=== PATIENT | female | born 1990 | race Caucasian/White ===

== ENCOUNTER 2017-07-22 10:39 | Inpatient (IN) | payer OTHER ==
[~2017-07-22] VITALS: Ht 165.1 cm; Wt 114.0 kg
[2017-07-25] MEDS ORDERED: OXYTOCIN 30U/ 0.9% NaCL 500ML 500 ML IV ONE (20:58)
[2017-07-25] MEDS ORDERED: OXYTOCIN 30U/ 0.9% NaCL 500ML 500 ML IV PRN (20:58)
[2017-07-25] MEDS: D5%-LACTATED RINGERS 1,000 ML IV SCH (20:58)
[2017-07-25] MEDS ORDERED: FENTANYL PF 100 MCG/2ML IV PRN (21:00)
[2017-07-25] MEDS ORDERED: CALCIUM CARBONATE 500 MG TAB.CHEW PO PRN (21:00)
[2017-07-25] MEDS ORDERED: ONDANSETRON 2MG/ML, 2ML IVPush PRN (21:00)
[2017-07-25] MEDS ORDERED: MISOPROSTOL 25 MCG TABLET VG PRN (21:00)
[2017-07-25] MEDS ORDERED: FENTANYL PF 100 MCG/2ML IVPush PRN (21:00)
[2017-07-25] MEDS ORDERED: NEWBORN KIT ONE (21:04)
[2017-07-25 21:10] VITALS: BP 124/72
[2017-07-25] MEDS ORDERED: MISOPROSTOL 25 MCG TABLET ONE (21:22)
[2017-07-25 21:24] LABS: BASOPHILS # (AUTO) 0.05 x10^3/uL (0-0.1); BASOPHILS % (AUTO) 0 % (0-1); EOSINOPHILS # (AUTO) 0.03 x10^3/uL (0-0.4); EOSINOPHILS % (AUTO) 0 % (1-7); LYMPHOCYTES # (AUTO) 2.21 x10^3/uL (1-3.4); LYMPHOCYTES % (AUTO) 17 % (22-44); MD NO; MEAN CORPUSCULAR HEMOGLOBIN 33.2 pg (27.0-34.8); MEAN CORPUSCULAR HGB CONC 34.3 g/dL (32.4-35.8); MEAN CORPUSCULAR VOLUME 96.8 fL (80-100); MEAN PLATELET VOLUME 9.9 fL (7.4-10.4); MONOCYTES # (AUTO) 0.88 x10^3/uL (0.2-0.8); MONOCYTES % (AUTO) 7 % (2-9); NEUTROPHILS # (AUTO) 9.73 x10^3/uL (1.8-6.8); NEUTROPHILS % (AUTO) 75 % (42-75); PLATELET COUNT 174 x10^3/uL (130-400); RED BLOOD COUNT 3.82 x10^6/uL (3.82-5.3); RED CELL DISTRIBUTION WIDTH 13.2 % (9.6-15.2)
[2017-07-25 21:37] LABS: AMPHETAMINE SCREEN, URINE Negative (Negative); BARBITURATE SCREEN, URINE Negative (Negative); BENZODIAZEPINE SCREEN, URINE Negative (Negative); CANNABINOID SCREEN, URINE Positive (Negative); COCAINE SCREEN, URINE Negative (Negative); METHADONE SCREEN, URINE Negative (Negative); OPIATE SCREEN, URINE Negative (Negative)
[2017-07-26] MEDS ORDERED: PENICILLIN GK 5,000,000 UNITS in SODIUM CHLORIDE 0.9% 100 ML IVPB ONE (01:00)
[2017-07-26] MEDS: LACTATED RINGERS 1,000 ML IV SCH ×8 (01:46→21:23)
[2017-07-26] MEDS ORDERED: SODIUM CITRATE/CITRIC ACID 30 ML UDC ONE ×2 (02:14→18:42)
[2017-07-26] MEDS ORDERED: METOCLOPRAMIDE 5 MG/ML, 2ML ONE ×3 (02:14→19:30)
[2017-07-26] MEDS: PENICILLIN GK 2,500,000 UNITS in DEXTROSE 5% 100 ML IVPB SCH ×5 (06:39→21:00)
[2017-07-26] MEDS ORDERED: TERBUTALINE 1 MG/ML, 1ML ONE (06:50)
[2017-07-26] MEDS: TERBUTALINE 1 MG/ML, 1ML IVPush PRN ×2 (06:53→13:08)
[2017-07-26] MEDS ORDERED: FENTANYL/BUPIV./NS/PF 250 ML EPIDCONT ONE ×2 (07:49→07:55)
[2017-07-26] MEDS ORDERED: BUPIVACAINE/PF 0.25% ONE (07:49)
[2017-07-26] MEDS ORDERED: FENTANYL/BUPIV./NS/PF 250 ML EPIDCONT SCH (07:52)
[2017-07-26] MEDS ORDERED: BUPIVACAINE 0.25% ONE (07:55)
[2017-07-26] MEDS ORDERED: LACTATED RINGERS 1,000 ML IVBOLUS PRN (08:00)
[2017-07-26] MEDS ORDERED: NALOXONE 0.4 MG/ML, 1ML IVPush PRN (08:00)
[2017-07-26] MEDS ORDERED: EPHEDRINE 50 MG/ML, 1ML IVPush PRN ×2 (08:00→19:00)
[2017-07-26] MEDS: D5%-LACTATED RINGERS 1,000 ML IV SCH ×3 (09:10→20:58)
[2017-07-26] MEDS ORDERED: OXYTOCIN 30U/ 0.9% NaCL 500ML 500 ML ONE (11:19)
[2017-07-26] MEDS ORDERED: ONDANSETRON 2MG/ML, 2ML ONE ×2 (11:26→18:47)
[2017-07-26] MEDS ORDERED: LACTATED RINGERS 1,000 ML IV SCH (18:37)
[2017-07-26] MEDS ORDERED: OXYTOCIN 30U/ 0.9% NaCL 500ML 500 ML IV SCH (18:37)
[2017-07-26] MEDS ORDERED: EPHEDRINE 50 MG/ML, 1ML ONE (18:47)
[2017-07-26] MEDS ORDERED: CEFAZOLIN 1,000 MG ONE (18:47)
[2017-07-26] MEDS ORDERED: PROPOFOL 10 MG/ML, 20ML ONE (18:47)
[2017-07-26] MEDS ORDERED: PHENYLEPHRINE 10 MG/ML ONE (18:47)
[2017-07-26] MEDS ORDERED: FENTANYL PF 100 MCG/2ML ONE ×2 (18:47)
[2017-07-26] MEDS ORDERED: SUCCINYLCHOLINE 20 MG/ML, 10ML ONE (18:47)
[2017-07-26] MEDS ORDERED: KETOROLAC 30 MG/1 ML ONE (18:47)
[2017-07-26] MEDS ORDERED: OXYTOCIN 10 UNITS/ML, 1ML ONE (18:47)
[2017-07-26] MEDS ORDERED: DEXAMETHASONE 4 MG/ML, 1ML ONE (18:47)
[2017-07-26] MEDS ORDERED: hydrALAzine 20 MG/ML, 1ML IV PRN ×2 (19:00→21:00)
[2017-07-26] MEDS ORDERED: SODIUM CITRATE/CITRIC ACID 30 ML UDC PO ONE (19:00)
[2017-07-26] MEDS ORDERED: LABETALOL 5MG/ML, 20ML IV PRN ×2 (19:00→21:00)
[2017-07-26] MEDS ORDERED: FENTANYL PF 100 MCG/2ML IV PRN ×2 (19:00→21:00)
[2017-07-26] MEDS ORDERED: PROMETHAZINE 25 MG/ML, 1ML IV PRN ×2 (19:00→21:00)
[2017-07-26] MEDS ORDERED: METOCLOPRAMIDE 5 MG/ML, 2ML IV ONE (19:00)
[2017-07-26] MEDS ORDERED: MEPERIDINE/PF 25MG/0.5ML IVPush PRN ×2 (19:00→21:00)
[2017-07-26] MEDS ORDERED: OXYcodone 5 MG/5 ML ORAL.SOL UDC PO PRN (19:00)
[2017-07-26] MEDS ORDERED: ONDANSETRON 2MG/ML, 2ML IVPush PRN (19:00)
[2017-07-26] MEDS ORDERED: MIDAZOLAM 1 MG/ML, 2ML IV PRN ×2 (19:00→21:00)
[2017-07-26] MEDS ORDERED: LACTATED RINGERS 1,000 ML IVBOLUS ONE (19:00)
[2017-07-26] MEDS ORDERED: HYDROmorphone 1 MG/ML, 1ML IV PRN ×2 (19:00→21:00)
[2017-07-26] MEDS ORDERED: HYDROcodone/APAP 7.5-325MG/15ML UDC PO PRN (19:00)
[2017-07-26] MEDS ORDERED: LIDOCAINE 2%, 20ML ONE (19:30)
[2017-07-26] MEDS ORDERED: LABETALOL 5MG/ML, 20ML ONE (19:30)
[2017-07-26] MEDS: OXYTOCIN 30U/ 0.9% NaCL 500ML 500 ML IV SCH (19:36)
[2017-07-26] MEDS ORDERED: morphine SULFATE 10 MG/ML, 1ML IVPush PRN (20:00)
[2017-07-26] MEDS ORDERED: RHOGAM FROM BLOOD BANK 1 NOTE EA IM/IV ONE (20:00)
[2017-07-26] MEDS ORDERED: MISOPROSTOL 200 MCG TABLET PR PRN (20:00)
[2017-07-26] MEDS ORDERED: OXYcodone/APAP 5/325MG TABLET PO PRN (20:00)
[2017-07-26] MEDS: KETOROLAC 30 MG/1 ML IV SCH (20:00)
[2017-07-26] MEDS ORDERED: DIPH,PERTUSS(ACELL),TET VAC/PF NC IM-VACC PRN (20:00)
[2017-07-26] MEDS ORDERED: MEASLES,MUMPS&RUBELLA VACC/PF 0.5 ML SQ-VACC PRN (20:00)
[2017-07-26] MEDS ORDERED: ONDANSETRON 2MG/ML, 2ML IV PRN (20:00)
[2017-07-26] MEDS ORDERED: CALCIUM CARBONATE 500 MG TAB.CHEW PO PRN (20:00)
[2017-07-26] MEDS ORDERED: MEPERIDINE/PF 100 MG/ML ONE (20:33)
[2017-07-26 20:51] LABS: MEAN CORPUSCULAR HEMOGLOBIN 33.3 pg (27.0-34.8); MEAN CORPUSCULAR HGB CONC 34.2 g/dL (32.4-35.8); MEAN CORPUSCULAR VOLUME 97.3 fL (80-100); MEAN PLATELET VOLUME 10.1 fL (7.4-10.4); PLATELET COUNT 157 x10^3/uL (130-400); RED BLOOD COUNT 3.93 x10^6/uL (3.82-5.3); RED CELL DISTRIBUTION WIDTH 13.1 % (9.6-15.2)
[2017-07-26] MEDS ORDERED: ALBUTEROL SULFATE 2.5 MG/3 ML NPPB PRN (21:00)
[2017-07-26] MEDS ORDERED: ONDANSETRON ODT 8 MG PO PRN (21:00)
[2017-07-26 21:02] LABS: ALANINE AMINOTRANSFERASE 19 U/L (12-78); ALBUMIN 2.5 g/dL (3.4-5.0); ANION GAP 10 mmol/L (5-15); BILIRUBIN, DIRECT 0.1 mg/dL (0.1-0.2); CALCIUM 8.9 mg/dL (8.5-10.1); CHLORIDE 109 mmol/L (98-107); CREATININE 0.75 mg/dL (0.55-1.02)
[2017-07-26 21:05] LABS: ALKALINE PHOSPHATASE 137 U/L (45-117); BILIRUBIN,TOTAL 0.4 mg/dL (0.2-1.0)
[2017-07-26 21:33] LABS: BASOPHILS # (AUTO) 0.01 x10^3/uL (0-0.1); BASOPHILS % (AUTO) 0 % (0-1); EOSINOPHILS % (AUTO) 0 % (1-7); LYMPHOCYTES # (AUTO) 1.29 x10^3/uL (1-3.4); LYMPHOCYTES % (AUTO) 7 % (22-44); MD SCAN; MONOCYTES # (AUTO) 0.76 x10^3/uL (0.2-0.8); MONOCYTES % (AUTO) 4 % (2-9); NEUTROPHILS # (AUTO) 16.33 x10^3/uL (1.8-6.8); NEUTROPHILS % (AUTO) 89 % (42-75)
[2017-07-26] MEDS ORDERED: HYDROcodone/APAP 7.5-325MG/15ML UDC ONE (21:41)
[2017-07-26 23:09] VITALS: BP 124/76
[2017-07-27 01:10] VITALS: BP 128/59
[2017-07-27] MEDS: OXYcodone IR 5MG TABLET PO PRN ×4 (02:06→21:39)
[2017-07-27] MEDS: LACTATED RINGERS 1,000 ML IV SCH ×2 (03:36→05:36)
[2017-07-27 05:00] VITALS: BP 117/70
[2017-07-27 05:27] LABS: MEAN CORPUSCULAR HEMOGLOBIN 33.9 pg (27.0-34.8); MEAN CORPUSCULAR HGB CONC 34.5 g/dL (32.4-35.8); MEAN CORPUSCULAR VOLUME 98.4 fL (80-100); MEAN PLATELET VOLUME 10.4 fL (7.4-10.4); PLATELET COUNT 140 x10^3/uL (130-400); RED BLOOD COUNT 3.47 x10^6/uL (3.82-5.3); RED CELL DISTRIBUTION WIDTH 13.3 % (9.6-15.2)
[2017-07-27] MEDS: KETOROLAC 30 MG/1 ML IV SCH ×2 (05:28→11:30)
[2017-07-27] MEDS: OXYTOCIN 30U/ 0.9% NaCL 500ML 500 ML IV SCH (05:36)
[2017-07-27 06:00] LABS: BASOPHILS % (AUTO) 0 % (0-1); EOSINOPHILS % (AUTO) 0 % (1-7); LYMPHOCYTES # (AUTO) 1.21 x10^3/uL (1-3.4); LYMPHOCYTES % (AUTO) 6 % (22-44); MD SCAN; MONOCYTES # (AUTO) 0.87 x10^3/uL (0.2-0.8); MONOCYTES % (AUTO) 4 % (2-9); NEUTROPHILS # (AUTO) 17.93 x10^3/uL (1.8-6.8); NEUTROPHILS % (AUTO) 90 % (42-75)
[2017-07-27 07:50] VITALS: BP 109/75
[2017-07-27] MEDS: PRENATAL VIT/IRON/FA 1 EACH TABLET PO SCH (09:16)
[2017-07-27] MEDS: DOCUSATE 100 MG CAPSULE PO PRN ×2 (09:16→21:39)
[2017-07-27] MEDS: IBUPROFEN 600 MG TABLET PO PRN ×2 (11:55→21:39)
[2017-07-27 19:30] VITALS: BP 130/79
[2017-07-28] MEDS: OXYcodone IR 5MG TABLET PO PRN ×3 (02:43→09:32)
[2017-07-28] MEDS: IBUPROFEN 600 MG TABLET PO PRN ×2 (04:04→09:32)
[2017-07-28 08:17] VITALS: BP 132/90
[2017-07-28] MEDS: DOCUSATE 100 MG CAPSULE PO PRN (09:31)
[2017-07-28] MEDS: PRENATAL VIT/IRON/FA 1 EACH TABLET PO SCH (09:32)
[2017-07-28] MEDS ORDERED: OXYC-302 PO (13:34)
[2017-07-28] MEDS ORDERED: IBUP-1222 PO (13:35)
== END 2017-07-28 14:30 | disposition home or self-care (01) | DRG 766 ==
LOC: LDIP 07-25 20:56 → 2NE 07-26 22:32 → 2NW 07-26 23:45
PROVIDERS: ADMIT Obstetrics & Gynecology Gynecology; ATTEND Obstetrics & Gynecology Gynecology
PROC: 10D00Z1 Extraction of Products of Conception, Low, Open Approach (ICD-10-PCS; principal; 2017-07-26)
PROC: 3E0234Z Introduction of Serum, Toxoid and Vaccine into Muscle, Percutaneous Approach (ICD-10-PCS; 2017-07-26)
DX: O48.0 Post-term pregnancy (principal); O69.81X0 Labor and delivery complicated by cord around neck, without compression, not applicable or unspecified; O76 Abnormality in fetal heart rate and rhythm complicating labor and delivery; Z23 Encounter for immunization; Z37.0 Single live birth; Z3A.40 40 weeks gestation of pregnancy
CPT/HCPCS: 36415; 80053; 80307; 82248; 82803; 84550; 85025; 86850; 86900; J0690; J1100; J1885; J2405; J2540; J2704; J3010; J3490; J0330; J2270; J2370; J2590; J2765; J3105; J7120; J7121

== ENCOUNTER 2020-08-10 09:51 | Emergency (ER) | payer OTHER ==
[~2020-08-10] VITALS: Ht 165.1 cm; Wt 89.6 kg
[~2020-08-10 09:51] MED LIST: IBUP-1222 PO; OXYC1TAB14 PO
--- NOTE | 2020-08-10 10:08 | NUR ---
PT CAME IN [place] RLQ ABD PAIN THAT RADIATES TO BACK. SAYS IT WOKE HER UP IN THE MIDDLE OF THE NIGHT LAST NIGHT. PT HAS HAD HER APPENDIX REMOVED BUT ALSO HAS HX OF DIVERTICULITS. PT RESTING IN [facility]. AWAITING PROVIDER. BLANKET PROVIDED
[2020-08-10] MEDS ORDERED: KETOROLAC 30 MG/1 ML ONE (10:37)
[2020-08-10] MEDS ORDERED: ONDANSETRON 2MG/ML, 2ML ONE (10:40)
[2020-08-10 10:46] VITALS: BP 100/62
[2020-08-10 10:59] LABS: BASOPHILS % (AUTO) 1 % (0-1); EOSINOPHILS % (AUTO) 4 % (1-7); LYMPHOCYTES % (AUTO) 27 % (22-44); MEAN CORPUSCULAR HGB CONC 34.4 g/dL (32.4-35.8); MEAN PLATELET VOLUME 8.6 fL (7.4-10.4); MONOCYTES % (AUTO) 9 % (2-9); NEUTROPHILS % (AUTO) 59 % (42-75); PLATELET COUNT 195 x10^3/uL (130-400); RED BLOOD COUNT 4.12 x10^6/uL (3.82-5.3); RED CELL DISTRIBUTION WIDTH 12.9 % (9.6-15.2)
--- NOTE | 2020-08-10 10:59 | NUR ---
IV STARTED. LABS DRAWN. UA SENT. MEDICATED PER APR.
[2020-08-10] MEDS ORDERED: ONDANSETRON 2MG/ML, 2ML IVPush ONE (11:00)
[2020-08-10] MEDS ORDERED: KETOROLAC 30 MG/1 ML IVPush ONE (11:00)
[2020-08-10 11:01] LABS: MICROSCOPIC INDICATED
[2020-08-10 11:06] LABS: ALANINE AMINOTRANSFERASE 18 U/L (12-78); ALBUMIN 3.7 g/dL (3.4-5.0); ANION GAP 5 mmol/L (5-15); CALCIUM 8.6 mg/dL (8.5-10.1); CHLORIDE 109 mmol/L (98-107); CREATININE 0.64 mg/dL (0.55-1.02)
[2020-08-10 11:11] LABS: ALKALINE PHOSPHATASE 51 U/L (45-117); BILIRUBIN,TOTAL 0.7 mg/dL (0.2-1.0); TOTAL PROTEIN 6.5 g/dL (6.4-8.2)
[2020-08-10] MEDS ORDERED: OMNIPAQUE 350 MG/ML, 100ML BOTTLE ONE (11:40)
== END 2020-08-10 12:50 | disposition home or self-care (01) ==
LOC: ED 10:27
DX: R10.2 Pelvic and perineal pain (principal); F17.210 Nicotine dependence, cigarettes, uncomplicated
CPT/HCPCS: 36415; 74177; 80053; 81001; 84703; 85025; 96374; 96375; 99285; J1885; J2405; Q9967